=== PATIENT | female | born 1965 | race Caucasian/White ===

== ENCOUNTER 2019-09-03 04:28 | Emergency (ER) | payer OTHER ==
[~2019-09-03] VITALS: Ht 167.6 cm; Wt 65.2 kg
[2019-09-03] MEDS ORDERED: ALBU0.63 NEB (04:38)
[2019-09-03] MEDS ORDERED: LORazepam 1MG TABLET ONE (04:57)
[2019-09-03] MEDS ORDERED: LORazepam 1MG TABLET PO ONE (05:00)
--- NOTE | 2019-09-03 05:02 | NUR ---
TASK RN: PT. ICATED PER MAR. ALL MONITORS ARE IN PLACE. ALL SAFETY MEASURS OBSERVED. VS UPDATED. PT. DENIES FURTHER NEEDS AT THIS TIME.
[2019-09-03 06:02] VITALS: BP 125/73
== END 2019-09-03 06:04 | disposition home or self-care (01) ==
LOC: ED 05:00
DX: F10.10 Alcohol abuse, uncomplicated (principal); F41.9 Anxiety disorder, unspecified; Y90.0 Blood alcohol level of less than 20 mg/100 ml
CPT/HCPCS: 99283